=== PATIENT | female | born 1955 | race Caucasian/White ===

== ENCOUNTER 2017-06-17 10:11 | Emergency (ER) | payer OTHER ==
[~2017-06-17] VITALS: Ht 172.7 cm; Wt 71.1 kg
[~2017-06-17 10:11] MED LIST: ALPR-411 PO; ASPI1TAB83 PO; CHOL100010 PO; CLR10 PO; CYANOCOBALAMIN PO; DILT120T8 PO; FLX/5 PO; FOLIC ACID PO; HYDR25TA5 PO; MOME100A INH; NAPR1CAP12 PO; NSNN50; POTA1TAB97 PO; PRVHFAIN INH; PTDOPS OP; QUIN40TA18 PO; ULT50 PO; VLT500 PO
[2017-06-17 10:24] VITALS: TEMP 36.7; Ht 172.7 cm; Wt 71.1 kg
[2017-06-17 11:15] LABS: BASO % 0.6 %; BASO ABS # 0.05 K/uL (0-0.2); COMPLETE YES; EOS % 1.6 %; IG% 0.4 %; LYMPH % 20.9 %; LYMPH ABS # 1.66 K/uL (1.2-3.4); MEAN CELL VOLUME 91.1 fL (80-100); MEAN CORPUSCULAR HEMOGLOBIN 31.9 pg (25-34); MEAN PLATELET VOLUME 10.2 fL (7.4-10.4); NEUT % 67.5 %; PLATELET COUNT 341 K/uL (130-400); RED BLOOD COUNT 4.61 M/uL (4.2-5.4); WHITE BLOOD COUNT 7.96 K/uL (4.8-10.8)
[2017-06-17 11:21] LABS: URINE APPEARANCE CLEAR (CLEAR); URINE BILIRUBIN NEG (NEG); URINE COLOR YELLOW; URINE NITRITE NEG (NEG); URINE PH 5.5 (4.5-7.5); URINE SPECIFIC GRAVITY 1.013 (1.000-1.030); UROBILINOGEN NEG (NEG); ZZUR CULT IF INDIC CLEAN CATCH NO
[2017-06-17 11:25] LABS: ALT/SGPT 32 U/L (12-78); BLOOD UREA NITROGEN 8 mg/dl (7-18); BUN/CREATININE RATIO 12.9 (10-20); CALCIUM 9.3 mg/dl (8.5-10.1); CARBON DIOXIDE 22 mmol/L (21-32); CHLORIDE 110 mmol/L (98-107); CREATININE 0.62 mg/dl (0.60-1.20); GLUCOSE 104 mg/dl (70-99); POTASSIUM 3.6 mmol/L (3.5-5.1); SODIUM 141 mmol/L (136-145)
[2017-06-17 11:28] LABS: MANUAL MICROSCOPIC REQUIRED? NO; REVIEW REQ? NO
[2017-06-17 11:28] LABS: ALKALINE PHOSPHATASE 94 U/L (45-117); AST/SGOT 22 U/L (15-37)
[2017-06-17] MEDS ORDERED: WARF5TAB7 PO ×2 (11:45→11:46)
[2017-06-17] MEDS ORDERED: DILT-119 PO (11:45)
[2017-06-17] MEDS ORDERED: CYAN500T PO (11:45)
[2017-06-17] MEDS ORDERED: FLV1 PO (11:45)
[2017-06-17] MEDS ORDERED: MAGN400T6 PO (11:45)
[2017-06-17] MEDS ORDERED: TOPI25TA99 PO (11:45)
[2017-06-17] MEDS ORDERED: CLOT10TR2 MT (11:45)
[2017-06-17] MEDS ORDERED: POTA20TA16 PO (11:45)
[2017-06-17] MEDS ORDERED: MOME200A INH (11:45)
[2017-06-17] MEDS ORDERED: GADAVIST IV PRN (14:30)
--- NOTE | 2017-06-17 14:36 | DIAGNOSTIC IMAGING REPORT ---
MRI CERVICAL SPINE COMBO CLINICAL HISTORY: Acute urinary and stool incontinence. Tremors in the hand. Neck pain. TECHNIQUE: Sagittal and axial T1, T2 and STIR images were obtained. Images were acquired before and after the administration of 7 cc of intravenous Gadavist. COMPARISON STUDY: No previous studies for comparison. There are no suspicious areas of marrow replacement. No intrinsic cervical cord lesions are visualized. C2-3: There is no evidence of disc bulge or focal herniation. There is no spinal or foraminal stenosis. C3-4: There is no evidence of disc bulge or focal herniation. There is no spinal or foraminal stenosis. C4-5: There is a minimal circumferential disc bulge. There is no significant spinal stenosis. There is mild bilateral foraminal narrowing. C5-6 :There is a minimal circumferential disc bulge. There is no significant spinal stenosis. There is minimal foraminal narrowing. C6-7: There is a tiny right paracentral disc protrusion. There is no significant spinal stenosis. There is no significant foraminal narrowing C7-T1: There is a minimal circumferential disc bulge. There is no significant spinal or foraminal stenosis. There are no pathologically enhancing lesions. There are bilateral thyroid nodules. IMPRESSION: 1. Mild multilevel spondylitic change. No significant spinal stenosis. Minor foraminal narrowing at the C4-5 and C5-6 levels 2. Tiny right paracentral disc protrusion the C6-7 level 3. Multinodular thyroid gland. 4. No cord lesions are visualized. There are no pathologically enhancing masses. Electronically signed by: Peng Pandya M.D. 06/17/2017 2:35 PM Dictated Date/Time: 06/17/2017 2:29 PM
--- NOTE | 2017-06-17 15:00 | DIAGNOSTIC IMAGING REPORT ---
LUMBAR SPINE MRI WITH AND WITHOUT CONTRAST HISTORY: Acute urinary and stool incontinence, referred by Tammi TECHNIQUE: Multiplanar multisequence MRI of the lumbar spine was performed both before and after the intravenous administration of contrast. COMPARISON: None. FINDINGS: For the purpose of the report the L5-S1 disc space will be located on axial image 27 of 30. Alignment and curvature are intact. No fracture or subluxation. The conus terminates at the L1-L2 disc space level. Mild disc space narrowing at L2-L3 and L3-L4. Supply Technician images demonstrate a 5 cm exophytic T2 hyperintense lesion within the right kidney. This favors a cyst. No paraspinal or epidural masses. Mild to moderate facet degenerative changes seen within the lumbar spine. This is most pronounced at the L3-L4 and L5-S1 levels. There is mild surrounding soft tissue edema and enhancement at this levels which is likely due to the long-standing degenerative change. T12-L1: Small focal central disc protrusion without significant central canal or neural foraminal narrowing. L1-L2: No significant central canal or neural foraminal narrowing. L2-L3: Small broad-based posterior disc bulge resulting in minimal central canal and mild bilateral neural foraminal narrowing. L3-L4: Small broad-based posterior disc bulge without significant central canal or neural foraminal narrowing. L4-L5: Small broad-based posterior disc bulge with ligamentum and facet hypertrophy resulting in moderate central canal and mild bilateral neural foraminal narrowing. L5-S1: Small broad-based posterior disc bulge with ligamentum and facet hypertrophy resulting in moderate central canal and mild bilateral neural foraminal narrowing. IMPRESSION: 1. No fractures or subluxation within the lumbar spine. 2. Multilevel lumbar spondylosis as described above most pronounced at the L4-L5 and L5-S1 levels. Electronically signed by: Fausto Benavides M.D. 06/17/2017 2:59 PM Dictated Date/Time: 06/17/2017 2:52 PM
--- NOTE | 2017-06-17 15:02 | DIAGNOSTIC IMAGING REPORT ---
MRI OF THE THORACIC SPINE WITH AND WITHOUT CONTRAST CLINICAL HISTORY: Acute urinary and stool incontinence. COMPARISON STUDY: No previous studies for comparison. TECHNIQUE: Utilizing a 1.5 Nancy magnet and dedicated coil, multiplanar, multi echo imaging of the thoracic spine was performed pre and postcontrast administration. Injection of 7 cc of Gadavist IV was uneventful. FINDINGS: Alignment of the thoracic spine is anatomic. Vertebral body heights are maintained. There is no marrow replacement or marrow edema. A Schmorl's node along the inferior endplate of T11 is noted. A small central disc protrusion at T12-L1 results in minimal narrowing of the central canal. Thoracic cord signal and caliber are normal. There is no abnormal cord enhancement. Paravertebral soft tissues are unremarkable. A 5.3 cm right renal lesion is suboptimally assessed on this exam but likely reflects a cyst. IMPRESSION: 1. Normal thoracic cord signal and caliber. 2. No intracanalicular mass or fluid collection. 3. Small central disc protrusion at T12-L1 with minimal central canal narrowing. Electronically signed by: Garrick Ferreira M.D. 06/17/2017 3:01 PM Dictated Date/Time: 06/17/2017 2:51 PM
[2017-06-17 16:47] VITALS: BP 155/93; PULSE 68; O2SAT 98
--- NOTE | 2017-06-17 21:17 | EMERGENCY ROOM VISIT NOTE ---
History First contact with patient: 10:51 Chief Complaint: NEURO SYMPTOMS Stated Complaint: NEUROLOGICAL SYMPTOMS History of Present Illness The patient is a 61 year old female who presents to the Emergency Room with complaints of urinary and stool incontinence that started 2 weeks ago. She was seen by Dr. Cadena in Neurology. Reflexes were brisk. Request was made for full spinal MRI with contrast. She noted stool incontinence, worse in the morning. She also notes low back pain, lower leg pain, saddle paraesthesias, bowel/bladder dysfunction, and leg numbness,. She has a small vessel disease of the brain and recent brain MRI was unchanged. No prior history of the incontinence. History of hyperthyroidism. She is on Coumadin. Pt denies trauma , LOC, visual changes, new headache, neck pain, fevers, chills, malaise, night sweats, weight loss, history of malignancy, chest pain, breathing difficulties, abdominal pain, or other complaints. Source of History: patient Onset: 2 weeks ago Position: other (urinary and bowel) Quality: other (incontinence) Timing: intermittent Review of Systems See HPI for pertinent positives and negatives. A total of ten systems were reviewed and were otherwise negative. Past Medical/Surgical History Medical Problems: (1) Atrial fibrillation (2) Hyperthyroidism (3) Tachycardia Family History No pertinent family history stated. Social History Smoking Status: Former Smoker Marital Status: Housing Status: lives with significant other Occupation Status: employed Current/Historical Medications Scheduled Cholecalciferol (Vitamin D), 1,000 INTER.UNIT PO HS Clotrimazole (Mycelex), 10 MG MT 5XD Cyanocobalamin (Vitamin B-12), 500 MCG PO DAILY Diltiazem Hcl Ext Rel (Tiazac), 360 MG PO DAILY Folic Acid (Folic Acid), 1 MG PO BID Magnesium Oxide (Mag-Ox), 400 MG PO DAILY Mometasone Furoate (Nasal) (Nasonex), 1 SPRAY NA QAM Mometasone Furoate-Formoterol (Dulera 200/5 Mcg), 2 PUFFS INH BID Potassium Chloride (K-Tab), 20 MEQ PO QAM Potassium Ext Rel (Klor-Con), 40 MEQ PO HS Quinapril Hcl (Accupril), 40 MG PO QAM Topiramate (Topamax ), 50 MG PO HS Warfarin Sod (Jantoven), 5 MG PO DIRECTED Warfarin Sod (Jantoven), 2.5 MG PO DIRECTED Scheduled PRN Albuterol (Ventolin Hfa), 1 PUFF INH DAILY PRN for Wheezing Alprazolam (Alprazolam), 0.5 MG PO DAILY PRN for Anxiety Loratadine (Claritin), 10 MG PO DAILY PRN for SEASONAL Olopatadine Hydrochloride (Pataday), 1 DROP OP DAILY PRN for EYE Tramadol HCl (Tramadol HCl), 50 MG PO DAILY PRN for Pain Valacyclovir HCl (Valacyclovir HCl), 500 MG PO DAILY PRN for PRN Physical Exam Vital Signs Date Time Temp Pulse Resp B/P (MAP) Pulse Ox O2 Delivery O2 Flow Rate FiO2 06/17/17 16:47 68 18 155/93 98 Room Air 06/17/17 14:49 62 18 132/81 98 Room Air 06/17/17 12:19 64 14 135/77 97 Room Air 06/17/17 11:21 92 06/17/17 10:24 36.7 83 16 169/84 98 Room Air Physical Exam GENERAL: Awake, alert, well-appearing, in no distress HENT: Normocephalic, atraumatic. Oropharynx unremarkable. EYES: Normal conjunctiva. Sclera non-icteric. NECK: Supple. No nuchal rigidity. FROM. No JVD. RESPIRATORY: Clear to auscultation. CARDIAC: Regular rate, normal rhythm. Extremities warm and well perfused. Pulses equal. ABDOMEN: Soft, non-distended. No tenderness to palpation. No rebound or guarding. No masses. RECTAL: Relatively normal tone. Nontender external hemorrhoids present. No evidence of fistula, abscess, or incontinence. The patient did note some subjective numbness in the perianal area. MUSCULOSKELETAL: Chest examination reveals no tenderness. The back is symmetrical on inspection without obvious abnormality. There is no CVA tenderness to palpation. No joint edema. LOWER EXTREMITIES: Calves are equal size bilaterally and non-tender. No edema. No discoloration. NEURO: Normal sensorium. subject numbness in the inner and posterior thighs. symmetric reflexes. SKIN: No rash or jaundice noted. Medical Decision & Procedures ER Provider Diagnostic Interpretation: Radiology results as stated below per my review and radiologist interpretation: MRI OF THE THORACIC SPINE WITH AND WITHOUT CONTRAST FINDINGS: Alignment of the thoracic spine is anatomic. Vertebral body heights are maintained. There is no marrow replacement or marrow edema. A Schmorl's node along the inferior endplate of T11 is noted. A small central disc protrusion at T12-L1 results in minimal narrowing of the central canal. Thoracic cord signal and caliber are normal. There is no abnormal cord enhancement. Paravertebral soft tissues are unremarkable. A 5.3 cm right renal lesion is suboptimally assessed on this exam but likely reflects a cyst. IMPRESSION: 1. Normal thoracic cord signal and caliber. 2. No intracanalicular mass or fluid collection. 3. Small central disc protrusion at T12-L1 with minimal central canal narrowing. Electronically signed by: Garrick Ferreira M.D. 06/17/2017 3:01 PM Dictated Date/Time: 06/17/2017 2:51 PM LUMBAR SPINE MRI WITH AND WITHOUT CONTRAST FINDINGS: For the purpose of the report the L5-S1 disc space will be located on axial image 27 of 30. Alignment and curvature are intact. No fracture or subluxation. The conus terminates at the L1-L2 disc space level. Mild disc space narrowing at L2-L3 and L3-L4. Residential Program Coordinator images demonstrate a 5 cm exophytic T2 hyperintense lesion within the right kidney. This favors a cyst. No paraspinal or epidural masses. Mild to moderate facet degenerative changes seen within the lumbar spine. This is most pronounced at the L3-L4 and L5-S1 levels. There is mild surrounding soft tissue edema and enhancement at this levels which is likely due to the long-standing degenerative change. T12-L1: Small focal central disc protrusion without significant central canal or neural foraminal narrowing. L1-L2: No significant central canal or neural foraminal narrowing. L2-L3: Small broad-based posterior disc bulge resulting in minimal central canal and mild bilateral neural foraminal narrowing. L3-L4: Small broad-based posterior disc bulge without significant central canal or neural foraminal narrowing. L4-L5: Small broad-based posterior disc bulge with ligamentum and facet hypertrophy resulting in moderate central canal and mild bilateral neural foraminal narrowing. L5-S1: Small broad-based posterior disc bulge with ligamentum and facet hypertrophy resulting in moderate central canal and mild bilateral neural foraminal narrowing. IMPRESSION: 1. No fractures or subluxation within the lumbar spine. 2. Multilevel lumbar spondylosis as described above most pronounced at the L4-L5 and L5-S1 levels. Electronically signed by: Fausto Benavides M.D. 06/17/2017 2:59 PM Dictated Date/Time: 06/17/2017 2:52 PM MRI CERVICAL SPINE COMBO There are no suspicious areas of marrow replacement. No intrinsic cervical cord lesions are visualized. C2-3: There is no evidence of disc bulge or focal herniation. There is no spinal or foraminal stenosis. C3-4: There is no evidence of disc bulge or focal herniation. There is no spinal or foraminal stenosis. C4-5: There is a minimal circumferential disc bulge. There is no significant spinal stenosis. There is mild bilateral foraminal narrowing. C5-6 :There is a minimal circumferential disc bulge. There is no significant spinal stenosis. There is minimal foraminal narrowing. C6-7: There is a tiny right paracentral disc protrusion. There is no significant spinal stenosis. There is no significant foraminal narrowing C7-T1: There is a minimal circumferential disc bulge. There is no significant spinal or foraminal stenosis. There are no pathologically enhancing lesions. There are bilateral thyroid nodules. IMPRESSION: 1. Mild multilevel spondylitic change. No significant spinal stenosis. Minor foraminal narrowing at the C4-5 and C5-6 levels 2. Tiny right paracentral disc protrusion the C6-7 level 3. Multinodular thyroid gland. 4. No cord lesions are visualized. There are no pathologically enhancing masses. Electronically signed by: Peng Pandya M.D. 06/17/2017 2:35 PM Dictated Date/Time: 06/17/2017 2:29 PM Laboratory Results 06/17/17 11:00 Red Blood Count 4.61, Mean Corpuscular Volume 91.1, Mean Corpuscular Hemoglobin 31.9, Mean Corpuscular Hemoglobin Concent 35.0, Mean Platelet Volume 10.2, Neutrophils (%) (Auto) 67.5, Lymphocytes (%) (Auto) 20.9, Monocytes (%) (Auto) 9.0, Eosinophils (%) (Auto) 1.6, Basophils (%) (Auto) 0.6, Neutrophils # (Auto) 5.37, Lymphocytes # (Auto) 1.66, Monocytes # (Auto) 0.72, Eosinophils # (Auto) 0.13, Basophils # (Auto) 0.05 06/17/17 11:00 Test 06/17/17 10:50 06/17/17 11:00 Urine Color YELLOW Urine Appearance CLEAR (CLEAR) Urine pH 5.5 (4.5-7.5) Urine Specific Hercules 1.013 (1.000-1.030) Urine Protein NEG (NEG) Urine Glucose (UA) NEG (NEG) Urine Ketones NEG (NEG) Urine Occult Blood NEG (NEG) Urine Nitrite NEG (NEG) Urine Bilirubin NEG (NEG) Urine Urobilinogen NEG (NEG) Urine Leukocyte Esterase NEG (NEG) White Blood Count 7.96 K/uL (4.8-10.8) Red Blood Count 4.61 M/uL (4.2-5.4) Hemoglobin 14.7 g/dL (12.0-16.0) Hematocrit 42.0 % (37-47) Mean Corpuscular Volume 91.1 fL (80-100) Mean Corpuscular Hemoglobin 31.9 pg (25-34) Mean Corpuscular Hemoglobin Concent 35.0 g/dl (32-36) Platelet Count 341 K/uL (130-400) Mean Platelet Volume 10.2 fL (7.4-10.4) Neutrophils (%) (Auto) 67.5 % Lymphocytes (%) (Auto) 20.9 % Monocytes (%) (Auto) 9.0 % Eosinophils (%) (Auto) 1.6 % Basophils (%) (Auto) 0.6 % Neutrophils # (Auto) 5.37 K/uL (1.4-6.5) Lymphocytes # (Auto) 1.66 K/uL (1.2-3.4) Monocytes # (Auto) 0.72 K/uL (0.11-0.59) Eosinophils # (Auto) 0.13 K/uL (0-0.5) Basophils # (Auto) 0.05 K/uL (0-0.2) RDW Standard Deviation 45.2 fL (36.4-46.3) RDW Coefficient of Variation 13.8 % (11.5-14.5) Immature Granulocyte % (Auto) 0.4 % Immature Granulocyte # (Auto) 0.03 K/uL (0.00-0.02) Anion Gap 9.0 mmol/L (3-11) Est Creatinine Clear Calc Drug Dose 97.3 ml/min Estimated GFR () 113.6 Estimated GFR (Non- 98.0 BUN/Creatinine Ratio 12.9 (10-20) Calcium Level 9.3 mg/dl (8.5-10.1) Total Bilirubin 0.2 mg/dl (0.2-1) Direct Bilirubin < 0.1 mg/dl (0-0.2) Aspartate Amino Transf (AST/SGOT) 22 U/L (15-37) Alanine Aminotransferase (ALT/SGPT) 32 U/L (12-78) Alkaline Phosphatase 94 U/L (45-117) Total Protein 8.1 gm/dl (6.4-8.2) Albumin 4.1 gm/dl (3.4-5.0) Lipase 125 U/L (73-393) Laboratory results reviewed by me ECG Indication: weakness Rate (beats per minute): 79 Rhythm: normal sinus Findings: no acute ischemic change, no ectopy ED Course 1051: The patient was evaluated in room C9. A complete history and physical exam was performed. 1430: Gadavist 7mmol PRN IV interaction checking. 1538: I spoke to Dr. Cadean. He agrees that the patient can go home. 1651: I reevaluated and updated the patient. 1701: I reevaluated the patient. Discussed results and discharge instructions: She verbalized understanding and agreement. The patient is ready for discharge. Medical Decision Triage Nursing notes reviewed. The patient's presentation and history were concerning for fecal incontinence. Etiologies such as cauda equina, epidural abscess, osteomyelitis, fracture, metastatic disease, infection, gastrointestinal, as well as others were entertained. Patient was evaluated. She noted fecal incontinence. She was seen by neurology and referred to the emergency department for neuro imaging. The patient had unremarkable blood work. Her MRI of the cervical, thoracic, and lumbar spine as requested by neurology did not reveal any evidence of cord pathology, compression, or abnormality to explain the incontinence. I did discuss the case with Dr. Cadena and he would asked that the patient follow up with colorectal surgery and her primary physician. I did discuss this with the patient. He will also see the patient back in the office as well. The patient felt very comfortable with this plan. As she is doing relatively well and can ambulate without difficulty she will be discharged. If she worsens in any way she will be back. I gave my usual and customary discussion regarding this issue. By the evaluation outlined above other emergent etiologies such as those listed in the differential, as well as others, were deemed relatively unlikely. The patient was educated about the findings as listed above. All questions were answered and the patient was pleased with the treatment. Return instructions were outlined and the patient was discharged in stable condition. Medication Reconcilliation Current Medication List: was personally reviewed by me Blood Pressure Screening Patient's blood pressure: Elevated blood pressure Blood pressure disposition: Elevated BP felt to be situational Consults Time Called: 1536 Consulting Physician: Dr. Cadena Returned Call: [phone] Cadena. He agrees that the patient can go home. Impression Primary Impression: Incontinence Critical Care The scribe's documentation has been prepared under my direction and personally reviewed by me in its entirety. I confirm that the note above accurately reflects all work, treatment, procedures, and medical decision making performed by me. Departure Information Dispostion Home / Self-Care Referrals Jyoti Orellana M.D. (PCP) Forms HOME CARE DOCUMENTATION FORM, IMPORTANT VISIT INFORMATION, WORK / SCHOOL INSTRUCTIONS Patient Instructions My [facility] Additional Instructions Follow-up with Dr. Cadena's office on Tuesday for a follow-up appointment. Call your primary office on Tuesday and set up a follow-up appointment regarding the incontinence. Discuss referral to colorectal or GI. continue current medications. Return to the ER for worsening incontinence, abdominal pain, vomiting, fevers, bloody stools, lower leg weakness, rectal pain, or as needed.
== END 2017-06-17 17:02 | disposition home or self-care (01) ==
LOC: C.EDB 10:15 → C.EDC 17:02
DX: R32 Unspecified urinary incontinence (principal); I48.91 Unspecified atrial fibrillation; E03.9 Hypothyroidism, unspecified; R00.0 Tachycardia, unspecified; Z87.891 Personal history of nicotine dependence; Z79.01 Long term (current) use of anticoagulants